=== PATIENT | female | born 1995 | race Caucasian/White ===

== ENCOUNTER 2021-02-09 19:32 | Emergency (ER) | payer OTHER ==
[~2021-02-09 19:32] MED LIST: BACTRIM DS TAB1 EACH PO; COLACE 100MG C100 MG PO; FLOMAX0.4 MG PO; NORCO 5-325 TA1 EACH PO; OMNICEF 300 MG300 MG PO; TORADOL 10 MG T10 MG PO; ZOFRAN ODT 4 MG4 MG PO; ZOFRAN4 MG PO
[2021-02-09 20:16] LABS: HEMOGLOBIN 10.4 gm/dl (12.3-15.3); RED BLOOD COUNT 3.21 M/UL (4.00-5.10); WHITE BLOOD COUNT 9.4 K/UL (4.5-11.0)
[2021-02-09 21:01] LABS: BUN/CREATININE RATIO 7 (0-10)
[2021-02-09] MEDS ORDERED: OMNICEF 300 MG300 MG PO (22:17)
[2021-02-09] MEDS ORDERED: K-DUR TAB 20 M20 MEQ PO (22:17)
[2021-02-13 19:12] LABS: CHLAMYDIA TRACHOMATIS, NAA Negative (Negative); NEISSERIA GONORRHOEAE, NAA Negative (Negative)
== END 2021-02-09 23:05 | disposition home or self-care (01) ==
LOC: ER1 19:32
PROVIDERS: Nurse Practitioner; Physician Assistant
DX: O23.42 Unspecified infection of urinary tract in pregnancy, second trimester (principal); O99.282 Endocrine, nutritional and metabolic diseases complicating pregnancy, second trimester; E87.6 Hypokalemia; Z88.2 Allergy status to sulfonamides; Z90.49 Acquired absence of other specified parts of digestive tract; Z87.442 Personal history of urinary calculi
CPT/HCPCS: 80053; 81001; 82550; 82553; 83605; 83690; 84484; 85025; 87040; 87086; 87210; 96374; 96375; 99284; J0696; J2550

== ENCOUNTER 2021-03-20 10:48 | Outpatient (CLI) | payer OTHER ==
[~2021-03-20] VITALS: Ht 152.4 cm; Wt 65.8 kg
[~2021-03-20 10:48] MED LIST changes: +K-DUR TAB 20 M20 MEQ PO
== END 2021-03-20 15:41 | disposition home or self-care (01) ==
LOC: GENOP 10:48
DX: O44.13 Complete placenta previa with hemorrhage, third trimester (principal); Z3A.28 28 weeks gestation of pregnancy; O99.513 Diseases of the respiratory system complicating pregnancy, third trimester; J45.909 Unspecified asthma, uncomplicated
CPT/HCPCS: 81001; G0463; J0702